=== PATIENT | male | born 1945 | race Caucasian/White ===

== ENCOUNTER 2020-05-14 06:57 | Emergency (ER) | payer MEDICARE ==
[2020-05-14] MEDS ORDERED: BABY ASPIRIN 81 MG CHEW ONE (07:25)
[2020-05-14] MEDS ORDERED: Sodium Chloride 0.9% 1000 ML 1,000 ML ONE (07:25)
[2020-05-14] MEDS: Sodium Chloride 0.9% 1000 ML 1,000 ML IV SCH (07:27)
[2020-05-14] MEDS: BABY ASPIRIN 81 MG CHEW PO ONE (07:28)
[2020-05-14 07:37] LABS: Hemoglobin 10.1 gm/dl (12.5-18.0); Mean Cell Volume 91.2 fl (78-100); Mean Corpuscular Hemoglobin 28.8 pg (26-32); Mean Corpuscular Hgb Concent. 31.6 g/dl (32-36); Platelet Count 318 K/mm3 (150-450); Red Blood Count 3.51 M/mm3 (4.1-5.6); White Blood Count 12.6 K/mm3 (4.0-10.5)
--- NOTE | 2020-05-14 07:43 | ERPHSYRPT ---
- History of Present Illness Time Seen by Provider: 05/14/20 07:39 Historian: patient Exam Limitations: no limitations Patient Subjective Stated Complaint: "I woke up with chest pain." Triage Nursing Assessment: Patient reported that chest pain woke him from sleep at 0600. Pain described as dull ache. Non-radiating. No associated symptoms. Reported taking his wive's indocen and NTG with relief from the NTG. Denied past heart history save mitral valve prolapse. Pupils 3mm brisk direct/consensual reaction to light. oral mucosa pink/moist. Neck supple non-tender without JVD. Symmetrical chest expansion. Heart tones S1/S2 regular rate and rhythm without extra sounds. Lungs vesicular wihtout adventitious sounds. Abdomen soft non- tender with bowel sounds present in all quadrants. Peripheral pulses +2 bilateral. No noted dependent edema. Gait steady without complications. 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 Today at around 4:00 in the morning he suddenly wake up with epigastric and substernal chest pain radiating to the back. He denies any nausea vomiting or shortness of breath. He also denies any Covid symptoms or fever or chills. Patient came to the emergency room at around 630 when his chest pain was almost resolved just have a little bit discomfort in substernal area. Timing/Duration: today Quality: tightness Location: substernal Chest Pain Radiation: back Severity of Pain-Max: mild Severity of Pain-Current: mild Modifying Factors: Improves With: nothing Associated Symptoms: denies symptoms Prior Chest Pain/Cardiac Workup: angina, recently seen/treated Nitro Today/Relief: 0.4 mg x 1 Aspirin Treatment Today: 81 mg x 1 Allergies/Adverse Reactions: No Known Drug Allergies Allergy (Unverified 05/14/20 06:58) Home Medications: Isosorbide Mononitrate 30 mg [Imdur 30 MG] 1 tab PO DAILY 05/14/20 [History] Olmesartan Medoxomil 0.5 tab PO DAILY 05/14/20 [History] Hx Tetanus, Diphtheria Vaccination/Date Given: Yes Hx Influenza Vaccination/Date Given: Yes Hx Pneumococcal Vaccination/Date Given: Yes Travel Risk - International Travel Have you traveled outside of the country in past 3 weeks: No - Coronavirus Screening Are you exhibiting any of the following symptoms?: No Close contact with a COVID-19 positive Pt in past 14-21 Days: No - Review of Systems Constitutional: No Fever, No Chills Eyes: No Symptoms Ears, Nose, & Throat: No Symptoms Respiratory: No Cough, No Dyspnea Cardiac: No Chest Pain, No Edema, No Syncope Abdominal/Gastrointestinal: No Abdominal Pain, No Nausea, No Vomiting, No Diarrhea Genitourinary Symptoms: No Dysuria Musculoskeletal: No Back Pain, No Neck Pain Skin: No Rash Neurological: No Dizziness, No Focal Weakness, No Sensory Changes Psychological: No Symptoms Endocrine: No Symptoms All Other Systems: Reviewed and Negative - Past Medical History Pertinent Past Medical History: Yes Neurological History: No Pertinent History Cardiac History: Hypertension, Other Respiratory History: No Pertinent History, Sleep Apnea Endocrine Medical History: No Pertinent History Musculoskeletal History: Osteoarthritis Other Medical History: injections of cortisone in knees. mitral valve prolapse - Past Surgical History Past Surgical History: Yes Other Surgical History: tonsils - Social History Smoking Status: Former smoker Exposure to second hand smoke: No Drug Use: none Patient Lives Alone: No - Nursing Vital Signs Nursing Vital Signs: Initial Vital Signs Temperature 98.7 F 05/14/20 06:58 Pulse Rate 63 05/14/20 06:58 Respiratory Rate 10 L 05/14/20 06:58 Blood Pressure 160/78 05/14/20 06:58 O2 Sat by Pulse Oximetry 98 05/14/20 06:58 Pain Scale Pain Intensity 5 - Physical Exam General Appearance: no apparent distress, alert Eye Exam: PERRL/EOMI, eyes nml inspection Ears, Nose, Throat Exam: normal ENT inspection, moist mucous membranes Neck Exam: normal inspection, non-tender, supple, full range of motion Respiratory Exam: normal breath sounds, lungs clear, No respiratory distress Cardiovascular Exam: regular rate/rhythm, normal heart sounds Gastrointestinal/Abdomen Exam: soft, No tenderness, No mass Back Exam: normal inspection, No CVA tenderness, No vertebral tenderness Extremity Exam: normal inspection, normal range of motion Neurologic Exam: alert, oriented x 3, cooperative, normal mood/affect, sensation nml, No motor deficits Skin Exam: normal color, warm, dry SpO2: 98 - Course Nursing assessment & vital signs reviewed: Yes EKG Interpreted by Me: Sinus Rhythm, Left Bundle Branch Block, Right Bundle Branch Block Rhythm Strip: Normal Sinus Rhythm - Radiology Exams Chest X-ray Interpretation: Reviewed by me, Negative - CT Exams Chest CT Interpretation: Tele-radiologist Report Ordered Tests: Active Orders 24 hr Category Date Time Status Manifold Builder STAT Care 05/14/20 07:22 Active EKG-ER Only STAT Care 05/14/20 07:21 Active CHEST 1 VIEW (PORTABLE) Stat Exams 05/14/20 07:22 Completed CHEST WITH CONTRAST [CT] Stat Exams 05/14/20 07:50 Ordered CBC W DIFF Stat Lab 05/14/20 07:25 Completed CMP Stat Lab 05/14/20 07:25 Completed D-DIMER QUANTITATIVE Stat Lab 05/14/20 07:25 Completed Manual Differential NC Stat Lab 05/14/20 07:25 Completed NT PRO BNP Stat Lab 05/14/20 07:25 Completed TROPONIN Q3H Lab 05/14/20 07:25 Completed TROPONIN Q3H Lab 05/14/20 10:30 Ordered TROPONIN Q3H Lab 05/14/20 13:30 Ordered TROPONIN Q3H Lab 05/14/20 16:30 Ordered TROPONIN Q3H Lab 05/14/20 19:30 Ordered Medication Summary Generic Name Dose Route Start Last Admin Trade Name Freq PRN Reason Stop Dose Admin Sodium Chloride 1,000 mls @ 100 mls/hr 05/14/20 07:30 05/14/20 07:27 Sodium Chloride 0.9% 1000 Ml IV 06/13/20 07:29 100 mls/hr .Q10H COLEEN Administration Discontinued Medications Generic Name Dose Route Start Last Admin Trade Name Freq PRN Reason Stop Dose Admin Aspirin 81 mg 05/14/20 07:21 05/14/20 07:28 Baby Aspirin 81 Mg Chew PO 05/14/20 07:22 81 mg STAT ONE Administration Aspirin Confirm 05/14/20 07:25 Baby Aspirin 81 Mg Chew Administered 05/14/20 07:26 Dose 81 mg .ROUTE .STK-MED ONE Nitroglycerin 1 gm 05/14/20 07:53 05/14/20 07:55 Nitro-Bid 2% Ud Packets TOP 05/14/20 07:54 1 gm STAT ONE Administration Nitroglycerin Confirm 05/14/20 07:54 Nitro-Bid 2% Ud Packets Administered 05/14/20 07:55 Dose 1 gm .ROUTE .STK-MED ONE Lab/Rad Data: Laboratory Result Diagrams 05/14/20 07:25 05/14/20 07:25 Laboratory Results 05/14/20 05/14/20 05/14/20 Range/Units 07:25 07:25 07:25 WBC (4.0-10.5) K/mm3 RBC (4.1-5.6) M/mm3 Hgb (12.5-18.0) gm/dl Hct (42-50) % MCV (78-100) fl MCH (26-32) pg MCHC (32-36) g/dl RDW (11.5-14.0) % Plt Count (150-450) K/mm3 MPV (7.5-11.0) fl Segmented Neutrophils (36.-66.) % Lymphocytes (Manual) (24-44) % Monocytes (Manual) (0.0-12.0) % Eosinophils (Manual) (0.00-3.0) % Platelet Estimate (NORMAL) RBC Morphology Polychromasia Poikilocytosis Anisocytosis D-Dimer 3351 H* (215-500) ng/mL Sodium 140 (137-145) mmol/L Potassium 3.6 (3.5-5.1) mmol/L Chloride 103 (98-107) mmol/L Carbon Dioxide 28 (22-30) mmol/L Anion Gap 12.5 (5-15) MEQ/L BUN 14 (9-20) mg/dL Creatinine 0.87 (0.66-1.25) mg/dL Estimated GFR > 60.0 ML/MIN Glucose 96 (74-106) mg/dL Calcium 9.2 (8.4-10.2) mg/dL Total Bilirubin 0.50 (0.2-1.3) mg/dL AST 47 (17-59) U/L ALT 32 (0-50) U/L Alkaline Phosphatase 71 (38-126) U/L Troponin I 1.960 H* (0.000-0.034) ng/mL NT-Pro-B Natriuret Pep 1220 H (0-900) pg/mL Serum Total Protein 7.4 (6.3-8.2) g/dL Albumin 3.7 (3.5-5.0) g/dL 05/14/20 Range/Units 07:25 WBC 12.6 H (4.0-10.5) K/mm3 RBC 3.51 L (4.1-5.6) M/mm3 Hgb 10.1 L (12.5-18.0) gm/dl Hct 32.0 L (42-50) % MCV 91.2 (78-100) fl MCH 28.8 (26-32) pg MCHC 31.6 L (32-36) g/dl RDW 15.0 H (11.5-14.0) % Plt Count 318 (150-450) K/mm3 MPV 10.0 (7.5-11.0) fl Segmented Neutrophils 78 H (36.-66.) % Lymphocytes (Manual) 16 L (24-44) % Monocytes (Manual) 4 (0.0-12.0) % Eosinophils (Manual) 2 (0.00-3.0) % Platelet Estimate NORMAL (NORMAL) RBC Morphology ABNORMAL Polychromasia 1+ Poikilocytosis 1+ Anisocytosis 1+ D-Dimer (215-500) ng/mL Sodium (137-145) mmol/L Potassium (3.5-5.1) mmol/L Chloride (98-107) mmol/L Carbon Dioxide (22-30) mmol/L Anion Gap (5-15) MEQ/L BUN (9-20) mg/dL Creatinine (0.66-1.25) mg/dL Estimated GFR ML/MIN Glucose (74-106) mg/dL Calcium (8.4-10.2) mg/dL Total Bilirubin (0.2-1.3) mg/dL AST (17-59) U/L ALT (0-50) U/L Alkaline Phosphatase (38-126) U/L Troponin I (0.000-0.034) ng/mL NT-Pro-B Natriuret Pep (0-900) pg/mL Serum Total Protein (6.3-8.2) g/dL Albumin (3.5-5.0) g/dL - Progress Progress: unchanged Air Movement: good Progress Note: 05/14/20 08:[address] [facility] contacted. They accepted the patient. Dr. Fajardo is the body shop supervisor for the patient. Dr. Johan Sabillon is the accepting physician at [facility]. Blood Culture(s) Obtained: No Antibiotics given: No Discussed with : Other (Johan Sabillon ([facility])) Counseled pt/family regarding: lab results, diagnosis, need for follow-up, rad results - Departure Departure Disposition: Transfer ([facility]) Clinical Impression: Non-ST elevation NM (NSTEMI) Condition: Fair Critical Care Time: Yes Critical Care Time(excluding separately billable procedures): Critical 30-74 mins Referrals: PRITI BOWEN MD [Primary Care Provider] -
[2020-05-14] MEDS ORDERED: NITRO-BID 2% UD PACKETS ONE (07:54)
[2020-05-14] MEDS: NITRO-BID 2% UD PACKETS TOP ONE (07:55)
[2020-05-14 08:02] LABS: ALBUMIN 3.7 g/dL (3.5-5.0); ALKALINE PHOSPHATASE 71 U/L (38-126); ANION GAP 12.5 MEQ/L (5-15); BLOOD UREA NITROGEN 14 mg/dL (9-20); CHLORIDE 103 mmol/L (98-107); Calcium 9.2 mg/dL (8.4-10.2); Carbon Dioxide 28 mmol/L (22-30); Creatinine 1 0.87 mg/dL (0.66-1.25); EST GLOMERULAR FILTRATION RATE > 60.0 ML/MIN; Glucose 96 mg/dL (74-106); NT PRO BNP 1220 pg/mL (0-900); Potassium 3.6 mmol/L (3.5-5.1); SGOT/AST 47 U/L (17-59); SGPT/ALT 32 U/L (0-50); SODIUM 140 mmol/L (137-145); Total Protein 7.4 g/dL (6.3-8.2)
--- NOTE | 2020-05-14 08:06 | XRAY ---
Indication: Chest pain. Comparison: August 18, 2012. Portable chest remains clear. Heart is not enlarged. Bony thorax intact again with mild degenerative changes. No new/acute findings.
[2020-05-14 08:14] LABS: Eosinophil 2 % (0.00-3.0); Lymphocytes 16 % (24-44); Monocyte 4 % (0.0-12.0); Neutrophils 78 % (36.-66.); Total Cells Counted 100
[2020-05-14 08:16] LABS: ANISOCYTOSIS 1+; Platelet Estimate NORMAL (NORMAL); Poikilocytosis 1+; Polychromasia 1+
[2020-05-14] MEDS ORDERED: ROCEPHIN 2 Gm-D5w 50ML BAG** 2 G/50 ML IVPB IV ONE (08:24)
[2020-05-14] MEDS: ROCEPHIN 2 Gm-D5w 50ML BAG** 2 G/50 ML IVPB IV STA (08:27)
[2020-05-14 09:03] VITALS: BP 150/88; PULSE 57; O2SAT 97
== END 2020-05-14 09:01 | disposition short-term general hospital (02) ==
LOC: ED 06:57
DX: I21.4 Non-ST elevation (NSTEMI) myocardial infarction (principal); R07.89 Other chest pain; I25.10 Atherosclerotic heart disease of native coronary artery without angina pectoris; I10 Essential (primary) hypertension; Z79.899 Other long term (current) drug therapy
CPT/HCPCS: 36415; 71045; 80053; 83880; 84484; 85025; 85379; 93005; 93041; 99285; 99291; J0696; A9270-GY

== ENCOUNTER 2024-12-13 09:00 | Day surgery (SDC) | payer MEDICARE ==
--- NOTE | 2024-12-12 10:16 | HP ---
HISTORY OF PRESENT ILLNESS: Patient is a 79-year-old gentleman, positive Cologuard. No bloody stool. No change in bowel habits. Last colonoscopy in 2018. Family history negative for colon cancer. He is in need of followup screening colonoscopy. PAST MEDICAL HISTORY: Type 2 diabetes. He has some hyperlipidemia. He has some chronic pain. PAST SURGICAL HISTORY: He has had cardiac valve repair in the past. He had an arterial bypass in the past. FAMILY HISTORY: Heart disease. SOCIAL HISTORY: Former smoker. No alcohol abuse. MEDICATIONS: Metformin, clotrimazole, betamethasone cream, zinc paste, gabapentin, Kenalog, Ambien, metoprolol, atorvastatin, aspirin, hydrocodone in the past. ALLERGIES: Latex. REVIEW OF SYSTEMS: Twelve systems reviewed. No chest pain or palpitations. Other systems negative or noncontributory as above and per preadmission questionnaire. PHYSICAL EXAMINATION: GENERAL: Height 5 feet 10 inches. BMI 25. No acute distress. HEENT: Sclerae nonicteric. NECK: No JVD. CHEST: Equal excursion, nonlabored breathing. CARDIOVASCULAR: Regular rate and rhythm. ABDOMEN: Soft. EXTREMITIES: No cyanosis or edema. NEUROLOGIC: Alert and oriented, moving all extremities symmetrically. PSYCHIATRIC: Appropriate mood and affect. SKIN: Dry. RECTAL: Deferred until time of endoscopic exam. IMPRESSION: Positive Cologuard. Last colonoscopy was in 2018. He needs followup screening colonoscopy. Risks were explained in detail including but not limited to bleeding and infection; risk of bowel injury or perforation possibly requiring other procedure; risk of missed or nondiagnosis or incomplete exam possibly requiring barium enema or other studies; general risk of anesthesia or sedation; risk of bowel prep. Otherwise, continue medications for diabetes. PLAN: Outpatient colonoscopy under MAC anesthesia.
[2024-12-13 09:27] VITALS: RESP 16
[2024-12-13 10:27] LABS: Calcium 9.1 mg/dL (8.4-10.2); Carbon Dioxide 28.0 mmol/L (22-30); Creatinine 1 0.91 mg/dL (0.66-1.25); EST GLOMERULAR FILTRATION RATE 86.8 ML/MIN; Glucose 89.0 mg/dL (74-106); Potassium 3.8 mmol/L (3.5-5.1)
[2024-12-13] MEDS ORDERED: propofoL IV ONE ×2 (11:13→11:27)
[2024-12-13 12:22] VITALS: BP 133/75; PULSE 62; TEMP 98.2; O2SAT 100
--- NOTE | 2024-12-14 16:31 | OP ---
SURGERY DATE/TIME: 12/13/2024 [id number] PREOPERATIVE DIAGNOSIS: Positive Cologuard. POSTOPERATIVE DIAGNOSES: 1) ASA class 3. 2) Fair bowel prep. 3) Withdrawal time approximately 8 minutes. 4) Diverticulosis. 5) Proximal sigmoid colon polyp. 6) Vague raised area versus hyperplasia mucosa of cecum. PROCEDURE: 1) Colonoscopy to cecum with biopsy of vague raised area in the cecum versus hyperplasia mucosa. 2) Hot snare polypectomy of an approximately 9 mm polyp in the proximal sigmoid colon removed with hot snare polypectomy. SURGEON: Jef Daniels MD ANESTHESIA: MAC. ESTIMATED BLOOD LOSS: Minimal. INDICATIONS: Consent obtained. DESCRIPTION OF PROCEDURE AND FINDINGS: The patient was taken to the endoscopy room. MAC anesthesia induced. After official time-out and no disagreement with planned procedure, digital rectal exam did not reveal any rectal masses. Videocolonoscope was inserted and passed up through slightly tortuous sigmoid, descending, transverse, ascending colon. He had some mild diverticulosis in the left colon. The scope was easily passed around the transverse colon around to the cecum. Appendiceal orifice and valve well visualized, photo documented. Prep overall was fair. Some liquid semisolid stool was suction irrigated as clear as possible. In the cecum, appendiceal orifice, and ileocecal valve photo documented. There was a vague raised area, whether this was just simple edema or hyperplasia versus early polyp, it was biopsied with forceps. Already had the hot forceps open, the hot forceps used. Good hemostasis noted. The scope was then carefully withdrawn over the next more than 8 minutes, suctioning some liquidy stool out as well as possible. There were no signs of any large polyps, masses, or obstructing lesions. There was an approximately 9 mm polyp in the proximal sigmoid colon that was removed with hot snare polypectomy, appeared to be removed completely. The staff said they had the specimen passed off. Good hemostasis noted. Again, this was in the proximal sigmoid colon. The patient had some mild diverticulosis in the left colon. Otherwise, no signs of any other large polyps, masses, or obstructing lesions. The scope was withdrawn. No immediate complications. Went to look for family in the waiting area.
== END 2024-12-13 12:36 | disposition home or self-care (01) ==
LOC: SDC 09:00
PROVIDERS: ATTEND Surgery
DX: Z12.11 Encounter for screening for malignant neoplasm of colon (principal); R19.5 Other fecal abnormalities; E11.9 Type 2 diabetes mellitus without complications; K57.30 Diverticulosis of large intestine without perforation or abscess without bleeding; K63.5 Polyp of colon